=== PATIENT | male | born 1995 | race Caucasian/White ===

== ENCOUNTER 2024-02-29 14:08 | Outpatient (AMB) | payer OTHER, SELFPAY ==
--- NOTE | 2024-02-29 14:10 | A.OFFVIS_ITS ---
Vital Signs 02/29/24 14:11 Height 5 ft 9 in Weight 171 lb BMI 25.2 BP 124/67 Blood Pressure Location Rt brachial Position Sitting Pulse 79 Pulse Source Doppler Pulse Oximetry (%) 98 Oxygen Delivery Method Room Air Intake Visit Reasons: spontaneous pneumothorax/asthma Allergies penicillin G Allergy (Severe, Verified 02/29/24 14:14) Hives HPI HPI spontaneous pneumothorax/asthma: Details: 29-year-old gentleman, nonsmoker, with underlying history of asthma with prior positive methacholine challenge test, also history of bilateral spontaneous pneumothoraces approximately 11 years prior, status post left sided pleurodesis with talc who presents to establish pulmonary follow-up. Patient used to see Dr. Navarro at [facility] approximately 5 years prior. He states that he does have albuterol MDI that he almost never uses despite having intermittent chest tightness symptoms. He denies significant dyspnea on exertion or allergic component, though he does states that he intermittently uses Zyrtec to try to control his symptoms. He denies family history of lung disease except spontaneous pleural effusion in his uncle when he was in his teens. Patient denies exposure to industrial dusts. [facility] Social History (Updated 02/29/24 @ 14:14 by Mireya Tobias [facility]) Patient Tobacco Use Status: Never used Tobacco Review of Systems Const Denies daytime sleepiness, Denies excessive sweating, Denies fatigue, Denies fever(s), Denies lethargy, Denies malaise, Denies night sweats, Denies snoring and Denies weight loss Eyes Denies blurry vision and Denies itchy eyes ENT Denies nasal congestion, Denies post nasal drip, Denies sinus pain, Denies sinus pressure and Denies other ( Thrush) Card Denies chest pain, Denies pedal edema, Denies dyspnea, Denies orthopnea and Denies paroxysmal nocturnal dyspnea Resp Denies cough, Denies hemoptysis, Denies excessive phlegm production, Denies dyspnea, Denies snoring, Denies wheezing and Reports other (Chest tightness) GI Denies abdominal pain and Denies heartburn Musc Denies myalgias, Denies arthralgias and Denies joint swelling Skin/Breast Denies rash Neuro Denies memory loss and Denies seizure-like activity Psych Denies abnormal sleep pattern, Denies anxiety and Denies memory loss Endo Denies excessive sweating, Denies fatigue and Denies heat intolerance Stephen/Lymph Denies easy bruising Aller/Immun Denies itchy eyes, Denies seasonal rhinorrhea and Denies wheezing Physical Exam Vital Signs: Last Vital Signs Pulse 79 02/29/24 14:11 BP 124/67 02/29/24 14:11 Pulse Ox 98 02/29/24 14:11 Oxygen Delivery Method Room Air 02/29/24 14:11 BMI result Body Mass Index 25.2 Const General: no acute distress and alert Nutritional Appearance: not obese Orientation/consciousness: Other orientation findings ( oriented) HEENT Head: Yes atraumatic Eyes General: appearance normal, both eyes and all related structures Sclerae: sclerae normal EOM: EOMs intact bilaterally Neck Neck: Yes supple Lymphatic: no lymphadenopathy noted Resp Effort & Inspection: normal respiratory effort and no use of accessory muscles Auscultation: clear to auscultation bilaterally Cardio Rate: regular rate Rhythm: regular rhythm Heart sounds: no gallops, no murmurs and no rubs Skin General skin exam: other ( warm) Extrem General: No clubbing, No cyanosis and No edema Assessment & Plan Assessment & Plan (1) History of pneumothorax: Code(s): Z87.09 - Personal history of other diseases of the respiratory system Category: Medical Plan: Bilateral spontaneous pneumothoraces status post left-sided pleurodesis. Will obtain CT chest for further evaluation. (2) Asthma: Code(s): J45.909 - Unspecified asthma, uncomplicated Category: Medical Plan: Underlying asthma, please mild intermittent. Will obtain full PFT and restart on albuterol MDI. Orders: Orders PFT pulmonary function test Today J45.909 - Unspecified asthma, uncomplicated CT chest wo IV con Today Z87.09 - Personal history of other diseases of the respiratory system Coding Level of Care Code New Pt Level 4 (44447) Diagnoses History of pneumothorax . Asthma J45.909
[2024-02-29 14:11] VITALS: BP 124/67; PULSE 79; O2SAT 98; BMI 25.2
== END 2024-02-29 14:33 | disposition home or self-care (01) ==
PROVIDERS: PCP Internal Medicine; Referring Provider Internal Medicine; Visit Provider Internal Medicine Pulmonary Disease
DX: Z87.09 Personal history of other diseases of the respiratory system (principal); J45.909 Unspecified asthma, uncomplicated
CPT/HCPCS: 99204

== ENCOUNTER → 2024-02-29 14:08 | Outpatient (BNVA) | payer OTHER, SELFPAY | PROVIDERS: PCP Internal Medicine; Visit Provider Internal Medicine Pulmonary Disease ==

== ENCOUNTER 2024-03-04 10:59 | Outpatient (REF) | payer OTHER, SELFPAY ==
--- NOTE | 2024-03-04 14:00 | PFT_ITS ---
Flows: FEV1: 84 % of predicted at 3.69 L FVC: 75 % of predicted at 3.98 L FEV1/FVC: 93 % Bronchodilator response: Present in small to medium airways only Volumes: Total lung capacity: 84 % of predicted at 5.76 L Residual volume: 122 % of predicted at 1.78 L Slow vital capacity: 74 % of predicted at 3.99 L Expiratory reserve volume: 100 % of predicted at 1.66 L Diffusion capacity: Normal Impression: No obstructive or restrictive ventilatory defect. Bronchodilator response in small to medium airways only. Increased residual volume suggests air trapping. MTDD
== END 2024-03-04 11:00 | disposition home or self-care (01) ==
LOC: HO.RESP 10:59
PROVIDERS: Visit Provider Internal Medicine Pulmonary Disease
DX: J45.909 Unspecified asthma, uncomplicated (principal)
CPT/HCPCS: 94010; 94640; 94727; 94729

== ENCOUNTER → 2024-03-04 14:00 | Outpatient (BNV) | payer OTHER, SELFPAY | PROVIDERS: Visit Provider Internal Medicine Pulmonary Disease | DX: J45.909 Unspecified asthma, uncomplicated (principal) | CPT/HCPCS: 94060; 94727; 94729 ==

== ENCOUNTER 2024-04-11 10:33 | Outpatient (AMB) | payer OTHER, SELFPAY ==
[2024-04-11 10:35] VITALS: BP 127/67; PULSE 80; O2SAT 96; BMI 25.6
--- NOTE | 2024-04-11 10:35 | MHC.OFFVIS ---
Vital Signs 04/11/24 10:35 Height 5 ft 9 in Weight 173 lb 1.006 oz BMI 25.6 BP 127/67 Blood Pressure Location Rt brachial Position Sitting Pulse 80 Pulse Source Doppler Pulse Oximetry (%) 96 Oxygen Delivery Method Room Air Intake Visit Reasons: Asthma/PFT & CT Follow Up Allergies penicillin G Allergy (Severe, Verified 02/29/24 14:14) Hives HPI HPI Asthma/PFT & CT Follow Up: Details: 29-year-old gentleman, nonsmoker, with underlying history of asthma with prior positive methacholine challenge test, also history of bilateral spontaneous pneumothoraces approximately 11 years prior, status post left sided pleurodesis with talc who presents to establish pulmonary follow-up. Patient used to see Dr. Navarro at [facility] approximately 5 years prior. He states that he does have albuterol MDI that he almost never uses despite having intermittent chest tightness symptoms. He denies significant dyspnea on exertion or allergic component, though he does states that he intermittently uses Zyrtec to try to control his symptoms. He denies family history of lung disease except spontaneous pleural effusion in his uncle when he was in his teens. Patient denies exposure to industrial dusts. After the last office visit patient's insurance has not improved his CT chest to evaluate for possible procedure related pulmonary fibrosis. he continues to use albuterol MDI and Zyrtec as needed with reasonable control of his symptoms. [facility] Social History (Updated 02/29/24 @ 14:14 by Mireya Tobias [facility]) Patient Tobacco Use Status: Never used Tobacco Review of Systems Const Denies daytime sleepiness, Denies excessive sweating, Denies fatigue, Denies fever(s), Denies lethargy, Denies malaise, Denies night sweats, Denies snoring and Denies weight loss Eyes Denies blurry vision and Denies itchy eyes ENT Denies nasal congestion, Denies post nasal drip, Denies sinus pain, Denies sinus pressure and Denies other ( Thrush) Card Denies chest pain, Denies pedal edema, Denies dyspnea, Denies orthopnea and Denies paroxysmal nocturnal dyspnea Resp Denies cough, Denies hemoptysis, Denies excessive phlegm production, Denies dyspnea, Denies snoring and Denies wheezing GI Denies abdominal pain and Denies heartburn Musc Denies myalgias, Denies arthralgias and Denies joint swelling Skin/Breast Denies rash Neuro Denies memory loss and Denies seizure-like activity Psych Denies abnormal sleep pattern, Denies anxiety and Denies memory loss Endo Denies excessive sweating, Denies fatigue and Denies heat intolerance Stephen/Lymph Denies easy bruising Aller/Immun Denies itchy eyes, Denies seasonal rhinorrhea and Denies wheezing Physical Exam Vital Signs: Last Vital Signs Pulse 80 04/11/24 10:35 BP 127/67 04/11/24 10:35 Pulse Ox 96 04/11/24 10:35 Oxygen Delivery Method Room Air 04/11/24 10:35 BMI result Body Mass Index 25.6 Const General: no acute distress and alert Nutritional Appearance: not obese Orientation/consciousness: Other orientation findings ( oriented) HEENT Head: Yes atraumatic Eyes General: appearance normal, both eyes and all related structures Sclerae: sclerae normal EOM: EOMs intact bilaterally Neck Neck: Yes supple Lymphatic: no lymphadenopathy noted Resp Effort & Inspection: normal respiratory effort and no use of accessory muscles Auscultation: clear to auscultation bilaterally Cardio Rate: regular rate Rhythm: regular rhythm Heart sounds: no gallops, no murmurs and no rubs Skin General skin exam: other ( warm) Extrem General: No clubbing, No cyanosis and No edema Assessment & Plan Assessment & Plan (1) Asthma: Code(s): J45.909 - Unspecified asthma, uncomplicated Category: Medical Plan: Controlled on as needed albuterol MDI. Continue current regimen. (2) History of pneumothorax: Code(s): Z87.09 - Personal history of other diseases of the respiratory system Category: Medical Plan: History of pneumothoraces after pleurodesis. 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 CT chest re requested. (3) Environmental allergies: Code(s): Z91.09 - Other allergy status, other than to drugs and biological substances Category: Medical Plan: Controlled on Zyrtec. Continue current regimen. Coding Level of Care Code Est Pt Level 4 (91511) Diagnoses Asthma J45.909 History of pneumothorax Z87. Environmental allergies Z91.09
== END 2024-04-11 10:47 | disposition home or self-care (01) ==
PROVIDERS: PCP Internal Medicine; Visit Provider Internal Medicine Pulmonary Disease
DX: J45.909 Unspecified asthma, uncomplicated (principal); Z87.09 Personal history of other diseases of the respiratory system; Z91.09 Other allergy status, other than to drugs and biological substances
CPT/HCPCS: 99214

== ENCOUNTER → 2024-04-11 10:33 | Outpatient (BNVA) | payer OTHER, SELFPAY | PROVIDERS: PCP Internal Medicine; Visit Provider Internal Medicine Pulmonary Disease ==